=== PATIENT | female | born 1950 | race Caucasian/White ===

== ENCOUNTER 2018-01-12 12:19 | Emergency (ER) | payer MEDICARE, OTHER, SELFPAY ==
[2018-01-12 12:22] VITALS: BP 153/67; PULSE 69; RESP 14; TEMP 36.7; O2SAT 100
--- NOTE | 2018-01-12 16:40 | ED_ITS ---
HPI - Skin/Abscess/Foreign Bdy <NAPOLEON Rodriguez-BC - Last Filed: 01/12/18 18:53> General Chief complaint: Skin/Abscess/Foreign Body Stated complaint: CUT FINGER ON ROLLER OF GARAGE DOOR Time Seen by Provider: 01/12/18 15:49 Source: patient and family Mode of arrival: ambulatory Limitations: no limitations History of Present Illness HPI narrative: Patient states she cut of the top of her right middle finger on a garage door roller yesterday. She states her tetanus is up-to-date. She states it was cleaned with alcohol and bandaged, but that it started bleeding again with the bandage was changed today. She denies any decreased mobility of her right middle finger. She denies any numbness or tingling or coolness of her right middle finger. Related Data Home Medications Medication Instructions Recorded Confirmed [CALTRATE W/D3] 600 mg PO QDAY #0 08/04/16 [FLORSTAR PROBIOTIC] 2 tab PO QDAY #0 08/04/16 [ONE A DAY] 1 tab PO QDAY #0 08/04/16 [GABRIELA-E] 400 mg PO QDAY #0 08/04/16 [TRIPLE FLEX] 2 tab PO QDAY #0 08/04/16 liothyronine [Cytomel] 5 mcg PO QDAY #0 08/04/16 01/12/18 montelukast 10 mg PO DAILY 01/12/18 01/12/18 Allergies Allergy/AdvReac Type Severity Reaction Status Date / Time shellfish derived Allergy Unknown Verified 01/12/18 12:25 [SHELLFISH DERIVED] Sulfa (Sulfonamide Allergy Unknown Verified 01/12/18 12:25 Antibiotics) [SULFA (SULFONAMIDE ANTIBIOTICS)] Review of Systems <SANDRO RodriguezBC - Last Filed: 01/12/18 18:53> Review of Systems GENERAL: Denies chills, fatigue, malaise, fever, sweats. HEENT: Denies sinus pain, ear pain, sore throat, difficulty swallowing, dizziness. RESPIRATORY: Denies dyspnea, cough, wheezing, hemoptysis, sputum. CARDIOVASCULAR: Denies chest pain, palpitations, orthopnea, edema, GASTROINTESTINAL: Denies nausea, vomiting, abdominal pain, diarrhea, constipation, melena. : Denies dysuria, frequency, incontinence, hematuria, urinary retention. MUSCULOSKELETAL: denies weakness, joint pain, or bony pain SKIN: See HPI NEUROLOGIC: Denies weakness, headache, numbness, change in speech, confusion, seizures, incoordination. PSYCHIATRIC: No concerning psychosocial issues. 12 point review of systems is negative except for those stated above Exam <Loly ZengNAPOLEON rice-BC - Last Filed: 01/12/18 18:53> Narrative Exam Narrative: GENERAL: This is a well-nourished, well-developed patient, at bedside HEAD: Atraumatic. Normocephalic. No temporal or scalp tenderness. EYES: Pupils equal round and reactive. Extraocular motions intact. No scleral icterus. No injection or drainage. ENT: Nose without bleeding, purulent drainage or septal hematoma. Throat without erythema, tonsillar hypertrophy or exudate. Uvula midline. Airway patent. NECK: Trachea midline. No JVD or lymphadenopathy. Supple, nontender, no meningeal signs. CARDIOVASCULAR: Regular rate and rhythm RESPIRATORY: Cough. No observed increased respiratory effort. GASTROINTESTINAL: Abdomen soft, non-tender, nondistended. No hepato-splenomegaly , or palpable masses. No guarding. EXTREMITIES: Right middle finger has full range of motion. Noted to have full flexion and extension. Capillary refill less than 2 sec. Positive radial pulse right hand. BACK: Nontender without deformity or crepitance. No flank tenderness. NEURO: AOx3. SKIN: 3 cm laceration noted on dorsal aspect of right middle finger. Laceration is U shaped. Goes over middle joint. History dermis. No to subcutaneous tissue. Well edges are well approximated and no foreign bodies are observed. Initial Vital Signs Initial Vital Signs: Vital Signs Temperature 98.1 F 01/12/18 12:22 Pulse Rate 69 01/12/18 12:22 Respiratory Rate 14 01/12/18 12:22 Blood Pressure 153/67 H 01/12/18 12:22 Pulse Oximetry 100 01/12/18 12:22 <Noemy Hui MD - Last Filed: 01/12/18 19:00> Initial Vital Signs Initial Vital Signs: Vital Signs Temperature 98.1 F 01/12/18 12:22 Pulse Rate 69 01/12/18 12:22 Respiratory Rate 14 01/12/18 12:22 Blood Pressure 153/67 H 01/12/18 12:22 Pulse Oximetry 100 01/12/18 12:22 Procedures <ANNITA Rodriguez - Last Filed: 01/12/18 18:53> Laceration Repair Laceration 1: Site: upper extremity Side (If applicable): right Size (cm): 3.0 Description: linear Depth: simple, single layer Pre-repair: wound explored, irrigated extensively (Soaked in water and Hibiclens. Cleansed with sterile water flushing.) and deep structures intact Skin layer closed with: other (Three Steri-Strips) Course <ANNITA Rodriguez - Last Filed: 01/12/18 18:53> Vital Signs - 8 hr 01/12/18 12:22 Temperature 98.1 F Pulse Rate 69 Respiratory Rate 14 Blood Pressure 153/67 H Pulse Oximetry 100 <Noemy Hui MD - Last Filed: 01/12/18 19:00> Vital Signs - 8 hr 01/12/18 12:22 Temperature 98.1 F Pulse Rate 69 Respiratory Rate 14 Blood Pressure 153/67 H Pulse Oximetry 100 MDM - Skin/Abscess/Foreign Bdy <ANNITA Rodriguez - Last Filed: 01/12/18 18:53> MDM Narrative Medical decision making narrative: The patient presents with laceration from yesterday. Given the length of time since the injury, I elected to use Steri- Strips to close rather than sutures. The wound was cleansed copiously. I discussed at length monitoring for signs and symptoms of infection. The patient placed in a finger splint to the pre option of reopening. The patient had no questions or concerns upon discharge. Discharge Plan Departure Patient Disposition: Home Clinical Impression: Laceration of finger Discharge Date/Time: 01/12/18 16:52 Interventions: ED Discharge Assessment Last Done: 01/12/18 16:52 Instructions: DI for Laceration Repair Steri-Strips Activity Restrictions/Additional Instructions: I have given you instructions on laceration repair Steri-Strips. Please monitor for signs and symptoms of infection including pus, redness fever. Please be evaluated any of those occur. We have given you a splint for your finger in order to help reopening of the laceration. Come back to the emergency department for any acute concerns and follow up with primary care physician as needed. Prescriptions: No Action liothyronine [Cytomel] 5 MCG tablet 5 mcg PO QDAY Qty: 0 RF: 0 [GABRIELA-E] 400 mg PO QDAY Qty: 0 RF: 0 [ONE A DAY] 1 tab PO QDAY Qty: 0 RF: 0 [TRIPLE FLEX] 2 tab PO QDAY Qty: 0 RF: 0 [CALTRATE W/D3] 600 mg PO QDAY Qty: 0 RF: 0 [FLORSTAR PROBIOTIC] 2 tab PO QDAY Qty: 0 RF: 0 montelukast 10 mg tablet 10 mg PO DAILY RF: 0 Referrals: Alan Solorzano MD [Primary Care Provider] -
== END 2018-01-12 16:52 | disposition home or self-care (01) ==
PROVIDERS: Emergency Provider Nurse Practitioner Family; PCP Internal Medicine
DX: S61.212A Laceration without foreign body of right middle finger without damage to nail, initial encounter (principal); W26.9XXA Contact with unspecified sharp object(s), initial encounter
CPT/HCPCS: 29130; 99282; 99283